=== PATIENT | female | born 1975 | race Caucasian/White ===

== ENCOUNTER 2017-05-27 15:05 | Emergency (ER) | payer MEDICAID ==
--- NOTE | 2017-05-27 15:42 | EDPHY ---
H & P Stated Complaint: eyes/nose after doing laundry yesterday;anxiety;hx of SI, no plan Time Seen by Provider: 05/27/17 15:36 HPI/ROS: CHIEF COMPLAINT: About to have a panic attack HISTORY OF PRESENT ILLNESS: This patient is a 41 year old female with history of PTSD, borderline personality disorder, and panic attacks arriving with her friend for evaluation of a possible allergic reaction and discussion of her mental health. In 07/2016 she developed psychiatric symptoms after taking Cipro, and was prescribed Valium and Seroquel. She discontinued Valium about 1 month ago and takes her Seroquel irregularly. She has felt depressed, suicidal, and anxious. She denies suicidal ideation at this time. She has an appointment with a psychiatrist in June, but currently feels frightened and overwhelmed by her mental health issues. Last night, she put a sweater on fresh out of the dryer and immediately felt tightness in her lungs. She subsequently developed a headache and burning eyes and sinuses. All her joints ache and burn - this has happened before, her primary care provider is performing an immune workup. She denies using any new detergents. She could not sleep last night due to her discomfort. Her difficulty breathing has resolved but she feels as if parasites are in her body. She did take a Claritin for symptom relief, no Benadryl because it gives her palpitations. REVIEW OF SYSTEMS: A 10 point review of systems was performed and is negative with the exception of the elements mentioned in the history of present illness. - Personal History LMP (Females 10-55): 22-28 Days Ago Current Tetanus Diphtheria and Acellular Pertussis (TDAP): Yes Tetanus Vaccine Date: 2007 - Medical/Surgical History PMH: Alcoholism, chronic bronchitis, asthma, anxiety, borderline personality disorder , PTSD Hx Asthma: Yes Hx Chronic Respiratory Disease: No Hx Diabetes: No Hx Cardiac Disease: No Hx Renal Disease: No Hx Cirrhosis: No Hx Alcoholism: Yes Hx HIV/AIDS: No Hx Splenectomy or Spleen Trauma: No Other PMH: Alcoholism, chronic bronchitis, asthma. "problems with immune system ". anxiety. Psych/PTSD - Social History Smoking Status: Former smoker Additional Social History: Former smoker. Single. Friend at bedside. Currently homeless, living with her friend. - Physical Exam Exam: General Appearance: Alert, anxious Eyes: Pupils equal and round, no conjunctival pallor or injection ENT, Mouth: Mucous membranes moist Neck: Normal inspection Respiratory: Lungs are clear to auscultation. No wheezes. Cardiovascular: Regular rate and rhythm Gastrointestinal: Abdomen is soft and non- tender Neurological: A&O, nonfocal, normal gait Skin: Warm and dry, no rash Extremities: Nontender, no pedal edema Psychiatric: Anxious Constitutional: Initial Vital Signs Temperature (C) 36.5 C 05/27/17 15:07 Heart Rate 100 05/27/17 15:07 Respiratory Rate 18 05/27/17 15:07 Blood Pressure 111/71 05/27/17 15:07 O2 Sat (%) 98 05/27/17 15:07 O2 Delivery Mode Room Air Allergies/Adverse Reactions: No Known Allergies Allergy (Verified 05/27/17 15:06) Home Medications: Medication Instructions Recorded Albuterol Hfa Anes Only 09/23/15 Diazepam [Valium] 5 mg PO TID PRN #15 tab 09/23/15 Medical Decision Making ED Course/Re-evaluation: 41 year old female with history of multiple mental health diagnoses presents for evaluation of a possible allergic reaction. Physical exam is unremarkable. No hives, no wheezes. The primary problem appears to be mental health issue. Had a long discussion with the patient regarding her medications and psychiatric follow up. I recommended she begin taking her medications again as prescribed until her followup with her new psychiatrist next month. I reassured her I see no evidence of an acute allergic reaction at this time. She will take a dose of her Valium for symptom relief. She agrees that restarting her medication regimen until further evaluation will likely help to relieve her anxiety and depression. Plan to discharge home in good condition. Return precautions discussed. She is comfortable with this plan. Departure - Departure Disposition: Home, Routine, Self-Care Clinical Impression: Anxiety Condition: Good Instructions: Anxiety (ED) Additional Instructions: 1. Take your medications as prescribed. Keep your appointment with your psychiatrist on June 15. 2. Follow up with Dr. Reynoso for further evaluation of your joint problems. 3. Return to the Emergency Department for worsening symptoms or other concerns. Referrals: ROMERO REYNOSO [Other] - As per Instructions Report Scribed for: Roseline Mcintosh Report Scribed by: Lee Ann Zhou Date of Report: 05/27/17 Time of Report: 15:42 Physician Review and Approval Statement: 05/27/17 15:42 Portions of this note were transcribed by a director biomedical engineering. I personally performed a history, physical exam, medical decision making, and confirmed accuracy of information the transcribed note.
[2017-05-27 16:20] VITALS: BP 112/71; PULSE 81; RESP 17; TEMP 99.1; O2SAT 96
== END 2017-05-27 16:19 | disposition home or self-care (01) ==
DX: F41.9 Anxiety disorder, unspecified (principal); J45.909 Unspecified asthma, uncomplicated; Z87.891 Personal history of nicotine dependence